=== PATIENT | female | born 1975 | race Caucasian/White ===

== ENCOUNTER 2021-06-28 18:48 | Emergency (ER) | payer OTHER, SELFPAY ==
[2021-06-28 19:04] VITALS: BP 120/59; PULSE 74; RESP 18; TEMP 36.2; O2SAT 99
[2021-06-28 19:09] VITALS: BP 120/59; PULSE 74; RESP 18; TEMP 36.2; O2SAT 99
--- NOTE | 2021-06-28 20:02 | ED.URI ---
HPI - URI/Sore Throat General Chief Complaint: Upper Respiratory Infection Stated Complaint: sinus pain Source: patient and RN notes reviewed Limitations: no limitations History of Present Illness HPI Narrative: The unvaccinated obese patient, a non-smoker/nondrinker, presents with 10-day history of persistent nasal congestion and upper sinus headache. Symptoms are mild, unrelieved with Nasacort or CPAP. No fever, sore throat, earache, cough, wheezing; no loss of taste/smell, CP, calf pain/edema, shortness of breath. No smokers or pet triggers at home; she seems like she had a similar episode last year-for which she was also given inhaler Related Data Allergies Allergy/AdvReac Type Severity Reaction Status Date / Time Penicillins Allergy Hives Verified 06/28/21 19:06 Review of Systems Review of Systems: General/Constitutional: No weight loss,fever t=98 Eyes: N0: Redness,discharge Ears/Nose/Throat: No: Epistaxis,ear discharge Respiratory: Denies: Hemoptysis Gastrointestinal: No Vomiting, Bleeding-rectal Skin: No Lumps, eruption Neurologic: No Focal Weakness,Sz Hematologic: Denies: Petechiae/Purpura Psychiatric: No: Suicida ideationl All Other Systems: Reviewed and Negative PMFSH Comments At time of signature, agree with nursing past medical, surgical, social and family history. There is no relevant family history pertinent to the presenting complaint Exam Narrative: General Appearance: Well appearing, Well nourished/obese EYE: PERRLA, Conjunctiva clear Ears: Auditory canal normal, TM normal Nose: Rhinorrhea, Mucousal erythema Mouth/Throat: MM moist, Uvula midline, Pharyngeal erythema Neck: Supple, No adenopathy Respiratory: No respiratory distress, Breath sounds equal, Clear to auscultation Cardiovascular: RRR, No JVD Musculoskeletal: Non tender, Normal strength Skin: Warm, Dry Neurological: A&O x3, CN II-XII intact Psychiatric: Normal mood, Normal affect Course Vital Signs Vital signs: Vital Signs Temperature 97.1 F L 06/28/21 19:04 Pulse Rate 74 06/28/21 19:04 Respiratory Rate 18 06/28/21 19:04 Blood Pressure 120/59 L 06/28/21 19:04 Pulse Oximetry 99 06/28/21 19:04 Temperature 97.1 F L 06/28/21 19:09 Pulse Rate 74 06/28/21 19:09 Respiratory Rate 18 06/28/21 19:09 Blood Pressure 120/59 L 06/28/21 19:09 Pulse Oximetry 99 06/28/21 19:09 MDM - URI/Sore Throat Lab Data Labs: Lab Results 06/28/21 Range/Units 20:03 SARS-CoV-2 RNA (RT-PCR) Pending Discharge Plan Discharge Clinical Impression: Sinusitis Patient Disposition: Home, Self-Care Condition: Stable Instructions: Sinusitis (ED) Prescriptions: New azithromycin 250 mg tablet See Rx Instructions .ROUTE .COMPLEX Qty: 6 RF: 0 azelastine 137 mcg (0.1 %) aerosol,spray 137 mcg NASAL Q12H Qty: 30 RF: 0 albuterol sulfate [Ventolin HFA] 90 mcg/actuation HFA aerosol inhaler 2 puff INHALATION QID PRN (Reason: shortness of breath or wheezing) Qty: 8.5 RF: 1 Follow-up/Referrals: UNKNOWN,DOCTOR [Primary Care Provider] - Stand Alone Forms: Work/School Release IP
[2021-06-30 20:04] LABS: SARS-CoV-2 RNA PCR Negative
== END 2021-06-28 20:11 | disposition home or self-care (01) ==
PROVIDERS: Emergency Provider Emergency Medicine
DX: J32.9 Chronic sinusitis, unspecified (principal); Z20.822 Contact with and (suspected) exposure to COVID-19; E28.2 Polycystic ovarian syndrome
CPT/HCPCS: 99213; C9803; G0463; U0003; U0005